=== PATIENT | female | born 1985 | race Caucasian/White ===

== ENCOUNTER 2017-11-04 10:48 | Inpatient (IN) ==
--- NOTE | 2017-11-04 11:20 | ED ---
History of Present Illness Primary Care Physician: No Primary Care Physician History of Present Illness: 33-year-old 002, IUP at 39 weeks per patient report care complicated by questional history of gestational hypertension, heroin use, tobacco use, insufficient care Patient presents complaining of a gush of clear fluid while she was sleeping. She reports that she continues to leak. She reports the patient full contractions at 9 AM which have increased in intensity and frequency since that time. There are no aggravating or alleviating factors except the increase in pain with time and no attempted treatments. The patient reports she was Subutex yesterday. She denies that she used heroin yesterday she denies she is used cocaine in the last 24 hours. She denies any vaginal bleeding. She reports good movement. [employer]: 002, 2 Past medical history: Denies Family history: Denies Past surgical history: Denies - Inpatient Certification I certify that the inpatient services were ordered in accordance with Medicare regulations governing the order. This includes certification that hospital inpatient services are reasonable and necessary and in the case of services not specified as inpatient-only under 42 CFR 419.22(n), that they are appropriately provided as inpatient services in accordance to with the 2-midnight benchmark under 43 CFR 412.3(e) Review of Systems All other systems reviewed negative except as stated in HPI Medications and Allergies Allergies Allergy/AdvReac Type Severity Reaction Status Date / Time Penicillins Allergy Hives Verified 11/04/17 11:23 Exam Narrative: GENERAL: Well-nourished, well-developed patient. SKIN: Warm and dry. HEAD: Normocephalic and atraumatic. EYES: No scleral icterus. No injection or drainage. ENT: No nasal drainage noted. Mucous membranes pink. Airway patent. NECK: Supple, trachea midline. No JVD. CARDIOVASCULAR: Regular rate and rhythm without murmurs, gallops, or rubs. RESPIRATORY: Breath sounds equal bilaterally. No accessory muscle use. BREASTS: Deferred ABDOMEN/GI: Abdomen soft, non-tender, bowel sounds present, no rebound, no guarding Gravid GENITOURINARY: External Genitalia: intact and normal in appearance FHT's: Category: 1 Baseline: 130 Reactive: yes Variability: moderate Decels: indeterminate EXTREMITIES: No cyanosis or edema. BACK: Nontender without obvious deformity. No CVA tenderness. NEUROLOGICAL: Awake and alert. Motor and sensory grossly within normal limits. Five out of 5 muscle strength in all muscle groups. Normal speech. Assessment and Plan - Plan 32 YO at 39/5 weeks with SROM this morning and contractions. Described as clear fluid. Questionable heroin use. FHT reassuring with Cat 1 tracing. Admit to labor and delivery. 1. IUP at 39w per patient report 2. Insufficient care: obtain labs 3. 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 Active labor: will admit for active labor, discussed risks of , risks/ indications of delivery 5. DCF case: patient's mother has custody of both other children, will notify DCF. Discharge Plan - Physicians Team ED Provider: Loli Solares Primary Care Provider: Primary Care Stephy Mitchell
[2017-11-04] MEDS ORDERED: Naloxone Inj 0.4 MG/ML Vial IV.PUSH PRN ×2 (11:22→12:21)
[2017-11-04] MEDS ORDERED: fentaNYL Citrate Inj 100 MCG/2 ML Ampul IV.PUSH PRN ×2 (11:22)
[2017-11-04] MEDS ORDERED: Sodium Chlor 0.9% Inj 500 ML IV.SIG PRN (11:22)
[2017-11-04] MEDS ORDERED: Oxytocin 30 Units/500ml Premix 30 UNITS/500 ML BAG IV.SIG ONE (11:22)
[2017-11-04] MEDS ORDERED: Sod Chloride 0.9% Inj 1,000 ML IV.CONT PRN (11:22)
[2017-11-04] MEDS ORDERED: Citric Acid/Sodium Citrate Liq 30 ML UDC PO SCH (11:30)
[2017-11-04] MEDS ORDERED: Lidocaine PF 1% Inj 5 ML Vial ONE (11:54)
[2017-11-04 12:07] LABS: Cord Arterial Blood HCO3 26.9
--- NOTE | 2017-11-04 12:12 | P.HPOB ---
History of Present Illness Primary Care Physician: No Primary Care Physician History of Present Illness: Patient Name: Jennifer Vazquez Date of : 83 Patient Status: Inpatient Attending Provider: Loli Solares Date: 11/04/17 11:20 Initialization Date: 11/04/17 11:20 History of Present Illness Primary Care Physician: No Primary Care Physician History of Present Illness: 33-year-old 002, IUP at 39 weeks per patient report care complicated by questional history of gestational hypertension, heroin use, tobacco use, insufficient care Patient presents complaining of a gush of clear fluid while she was sleeping. She reports that she continues to leak. She reports the patient full contractions at 9 AM which have increased in intensity and frequency since that time. There are no aggravating or alleviating factors except the increase in pain with time and no attempted treatments. The patient reports she was Subutex yesterday. She denies that she used heroin yesterday she denies she is used cocaine in the last 24 hours. She denies any vaginal bleeding. She reports good movement. 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 This includes certification that hospital inpatient services are reasonable and necessary and in the case of services not specified as inpatient-only under 42 CFR 419.22(n), that they are appropriately provided as inpatient services in accordance to with the 2-midnight benchmark under 43 CFR 412.3(e) Review of Systems All other systems reviewed negative except as stated in HPI Medications and Allergies Allergies Allergy/AdvReac Type Severity Reaction Status Date / Time Penicillins Allergy Hives Verified 11/04/17 11:23 Exam Narrative: GENERAL: Well-nourished, well-developed patient. SKIN: Warm and dry. HEAD: Normocephalic and atraumatic. EYES: No scleral icterus. No injection or drainage. ENT: No nasal drainage noted. Mucous membranes pink. Airway patent. NECK: Supple, trachea midline. No JVD. CARDIOVASCULAR: Regular rate and rhythm without murmurs, gallops, or rubs. RESPIRATORY: Breath sounds equal bilaterally. No accessory muscle use. BREASTS: Deferred ABDOMEN/GI: Abdomen soft, non-tender, bowel sounds present, no rebound, no guarding Gravid GENITOURINARY: External Genitalia: intact and normal in appearance FHT's: Category: 1 Baseline: 130 Reactive: yes Variability: moderate Decels: indeterminate EXTREMITIES: No cyanosis or edema. BACK: Nontender without obvious deformity. No CVA tenderness. NEUROLOGICAL: Awake and alert. Motor and sensory grossly within normal limits. Five out of 5 muscle strength in all muscle groups. Normal speech. Assessment and Plan - Plan 32 YO at 39/5 weeks with SROM this morning and contractions. Described as clear fluid. Questionable heroin use. FHT reassuring with Cat 1 tracing. Admit to labor and delivery. 1. IUP at 39w per patient report 2. Insufficient care: obtain labs 3. 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 Active labor: will admit for active labor, discussed risks of , risks/ indications of delivery 5. DCF case: patient's mother has custody of both other children, will notify DCF. Discharge Plan - Physicians Team ED Provider: Lloi Solares Primary Care Provider: Primary Care Stephy Mitchell - Inpatient Certification I certify that the inpatient services were ordered in accordance with Medicare regulations governing the order. This includes certification that hospital inpatient services are reasonable and necessary and in the case of services not specified as inpatient-only under 42 CFR 419.22(n), that they are appropriately provided as inpatient services in accordance to with the 2-midnight benchmark under 43 CFR 412.3(e) Estimated Total Length of Stay (Days): 2 Plans for Post Hospital Care: Home Medications and Allergies Active Medications: Active Medications Citric Acid/Sodium Citrate (Sodium Citrate/Citric Acid Liq) 30 ml PO [employer] [facility] Stop: 11/08/17 11:29 Fentanyl Citrate (Fentanyl Inj) 100 mcg IV.PUSH Q1H PRN PRN Reason: PAIN SCALE 6 TO 10 Fentanyl Citrate (Fentanyl Inj) 50 mcg IV.PUSH Q1H PRN PRN Reason: Pain Scale 3 - 5 Lactated Ringer's (Lr 1000 Ml Inj) 1,000 mls @ 125 mls/hr IV.CONT .Q8H [facility] Lactated Ringer's (Lr 1000 Ml Inj) 1,000 mls @ 3,000 mls/hr IV.SIG UNSCH PRN PRN Reason: compromise or epidural Sodium Chloride (Ns Inj) 500 mls @ 1,000 mls/hr IV.SIG UNSCH PRN PRN Reason: SEE LABEL COMMENTS Sodium Chloride (Ns Inj) 1,000 mls @ 100 mls/hr IV.CONT .Q10H PRN PRN Reason: SEE LABEL COMMENTS Lidocaine HCl (Xylocaine 1% Inj) 0.1 ml I-DERMAL PRN PRN PRN Reason: For IV start Stop: 11/07/17 11:21 Lidocaine HCl (Xylocaine 1% Inj) 10 ml INFILTRATN PRN PRN PRN Reason: For episiotomy repair Stop: 11/06/17 11:21 Mineral Oil (Muri-Lube Oil) 10 ml TOPICAL PRN PRN PRN Reason: PRN perineal massage Naloxone HCl (Narcan Inj) 0.1 mg IV.PUSH Q2M PRN PRN Reason: for opiate reversal Allergies Allergy/AdvReac Type Severity Reaction Status Date / Time Penicillins Allergy Hives Verified 11/04/17 11:23 Exam Vital signs: Vital Signs 11/04/17 12:07 Pulse Rate 113 H Respiratory Rate 18 Blood Pressure 131/71 Intake & Output 11/03/17 11/04/17 11/04/17 18:59 06:59 18:59 Weight 162 kg Results - Labs Labs: Laboratory Results - last 24 hr 11/04/17 11:50 Puncture Site Cord blood Cord ABG pH 7.220 Cord ABG pCO2 68.2 H Cord ABG pO2 12.5 Cord ABG HCO3 26.9 Cord ABG Base Excess 0 Cord ABG O2 Sat 18.2 Caprini VTE Risk Assessment Caprini VTE Risk Assessment: No/Low Risk (score <= 1) Caprini Risk Assessment Model: Point Value = 1 Point Value = 2 Point Value = 3 Point Value = 5 Age 41-60 Minor surgery BMI > 25 kg/m2 Swollen legs Varicose veins or History of unexplained or recurrent spontaneous Oral contraceptives or hormone replacement Sepsis (< 1 month) Serious lung disease, including pneumonia (< 1 month) Abnormal pulmonary function Acute myocardial infarction Congestive heart failure (< 1 month) History of inflammatory bowel disease Medical patient at bed rest Age 61-74 Arthroscopic surgery Major open surgery (> 45 min) Laparoscopic surgery (> 45 min) Malignancy Confined to bed (> 72 hours) Immobilizing plaster cast Central venous access Age >= 75 History of VTE Family history of VTE Factor V Leiden Prothrombin [id number] Lupus anticoagulant Anticardiolipin antibodies Elevated serum homocysteine Heparin-induced thrombocytopenia Other congenital or acquired thrombophilia Stroke (< 1 month) Elective arthroplasty Hip, pelvis, or leg fracture Acute spinal cord injury (< 1 month) Prophylaxis Regimen: Total Risk Factor Score Risk Level Prophylaxis Regimen 0-1 Low Early ambulation 2 Moderate Order ONE of the following: *Sequential Compression Device (SCD) *Heparin 5000 units SQ BID 3-4 Higher Order ONE of the following medications: *Heparin 5000 units SQ TID *Enoxaparin/Lovenox 40 mg SQ daily (WT < 150 kg, CrCl > 30 mL/min) *Enoxaparin/Lovenox 30 mg SQ daily (WT < 150 kg, CrCl > 10-29 mL/min) *Enoxaparin/Lovenox 30 mg SQ BID (WT < 150 kg, CrCl > 30 mL/min) AND/OR *Sequential Compression Device (SCD) 5 or more Highest Order ONE of the following medications: *Heparin 5000 units SQ TID (Preferred with Epidurals) *Enoxaparin/Lovenox 40 mg SQ daily (WT < 150 kg, CrCl > 30 mL/min) *Enoxaparin/Lovenox 30 mg SQ daily (WT < 150 kg, CrCl > 10-29 mL/min) *Enoxaparin/Lovenox 30 mg SQ BID (WT < 150 kg, CrCl > 30 mL/min) AND *Sequential Compression Device (SCD) Assessment and Plan - Plan 32 YO at 39/5 weeks with SROM this morning and contractions. Described as clear fluid. Questionable heroin use. FHT reassuring with Cat 1 tracing. Admit to labor and delivery. 1. Laboring at 39/5
--- NOTE | 2017-11-04 12:16 | P.PN ---
Subjective Interval history: Delivery note The patient rapidly progressed to complete/complete/+1 station. The patient was difficult to redirect due to pain, however she commenced spontaneous maternal expulsive efforts. The head delivered atraumatically and the anterior shoulder was visualized. A nuchal cord was reduced over the head and the remainder of the infant delivered atraumatically. The umbilical cord was also noted to be wrapped around the arm. The was vigorous immediately after delivery in the nose and mouth were suctioned with the bulb suction. The was placed on the maternal abdomen and the cord doubly clamped and cut after a delay of 1 minute. The vigorous was taken to the warmer. A cord pH and cord blood was obtained for the nursery. The placenta delivered spontaneously and appeared to be intact. A first-degree vaginal laceration was noted on the posterior vaginal wall near the introitus. 2 cc of 1% lidocaine were instilled followed by repair with a [id number] stitch of 2-0 Vicryl. EBL 200 cc. Apgars 8/9. Mother and are both doing well. Physical Exam Vital signs: Vital Signs 11/04/17 12:07 Pulse Rate 113 H Respiratory Rate 18 Blood Pressure 131/71 Intake & Output 11/03/17 11/04/17 11/04/17 18:59 06:59 18:59 Weight 162 kg Results - Labs CBC & Chem 7: 11/04/17 11:35 11/04/17 11:35 Laboratory Results - last 24 hr 11/04/17 11:50 Puncture Site Cord blood Cord ABG pH 7.220 Cord ABG pCO2 68.2 H Cord ABG pO2 12.5 Cord ABG HCO3 26.9 Cord ABG Base Excess 0 Cord ABG O2 Sat 18.2
--- NOTE | 2017-11-04 12:20 | P.OBDELI ---
Weeks Gestation: 39 Patient Started Active Labor: Yes Active Labor Start Date: 11/04/17 Medical Induction of Labor: No Anesthesia: None Episiotomy: none Vaginal Delivery: Normal, Spontaneous Presentation: Occiput anterior Nuchal Cord: x1 Delayed Cord Clamping (45 sec): Yes Shoulder Dystocia: Lulu maneuver done Placenta: Spontaneous delivery, Intact Laceration: Vaginal, 1 deg Estimated blood loss (mL): 200 Infant: Male, Single Delivery Date: 11/04/17 Delivery Time: 11:51 Weight: 3085 kg score (1 min): 8 score (5 min): 9 Additional Information: Male delivered. Dr Solares attending and Dr Wong as primary performer. Figure of 8 suture for superficial 1st degree vaginal laceration. Lidocaine injection given prior to suture with chromic gut. Hemostasis promptly achieved. EBL 250cc.
[2017-11-04] MEDS ORDERED: Benzocaine 20% Top Spray 60 ML Can TOPICAL PRN (12:21)
[2017-11-04] MEDS ORDERED: Bisacodyl 10 MG Supp RECTAL PRN (12:21)
[2017-11-04] MEDS ORDERED: Witch Hazel 50%/Glyderin 12.5% 40 Pad Jar RECTAL PRN (12:21)
[2017-11-04] MEDS ORDERED: Acetaminophen 325 MG Tablet PO PRN (12:21)
[2017-11-04] MEDS ORDERED: Zolpidem Tartrate 5 MG Tablet PO PRN (12:21)
[2017-11-04] MEDS ORDERED: Oxytocin 30 Units/500ml Premix 30 UNITS/500 ML BAG IV.CONT SCH (12:30)
[2017-11-04 12:50] LABS: Alanine Aminotransferase 20 U/L (10-53)
[2017-11-04 12:51] LABS: Albumin 2.5 g/dL (3.4-5.0); Anion Gap 10 meq/L (5-15); Aspartate Aminotransferase 34 U/L (15-37); Blood Urea Nitrogen 8 mg/dL (7-18); Calcium 7.9 mg/dL (8.5-10.1); Carbon Dioxide 21.5 meq/L (21.0-32.0); Chloride 105 meq/L (98-107); Glomerular Filtration Rate Greater Than 89 mL/min (>89); Glucose,Random 98 mg/dL (74-106); Potassium 4.2 meq/L (3.5-5.1); Sodium 136 meq/L (136-145)
[2017-11-04 12:52] LABS: Alkaline Phosphatase 243 U/L (45-117); Total Protein 6.8 g/dL (6.4-8.2)
[2017-11-04 13:13] LABS: Hepatitits B Surface Antigen Nonreactive (Nonreactive)
[2017-11-04 13:32] LABS: Amphetamine Urine With Conf Neg (Neg); Benzodiazepine Urine With Conf Neg (Neg)
[2017-11-04 13:33] LABS: Bilirubin,Urine Negative (Negative); Clarity,Urine Hazy (Clear); Color,Urine Yellow (Yellw/Straw); Glucose,Urine (UA) Negative (Negative); Leukocyte Esterase,Urine Negative (Negative); Mucus,Urine Few /lpf (Occasional); Nitrite,Urine Negative (Negative); Squamous Epithelial Cell,Urine 2 /hpf (0-5)
[2017-11-04 13:43] LABS: Hepatitis A IgM Antibody Nonreactive (Nonreactive)
[2017-11-04 14:12] LABS: Baso % (Auto) 0.1 % (0.0-2.0); Eos # (Auto) 0.1 th/mm3 (0.0-0.4); Eos % (Auto) 0.6 % (0.0-4.0); Hematocrit 33.8 % (35.0-46.0); Hemoglobin 11.3 gm/dL (11.6-15.3); Lymph # (Auto) 1.2 th/mm3 (1.0-4.8); Lymph % (Auto) 7.6 % (9.0-44.0); Mean Corpuscular HGB Conc 33.3 % (32.0-36.0); Mean Corpuscular Hemoglobin 31.4 pg (27.0-34.0); Mean Corpuscular Volume 94.3 fL (80.0-100.0); Mean Platelet Volume 8.8 fL (7.0-11.0); Mono # (Auto) 0.5 th/mm3 (0.0-0.9); Mono % (Auto) 3.1 % (0.0-8.0); Neut # (Auto) 13.8 th/mm3 (1.8-7.7); Neut % (Auto) 88.6 % (16.0-70.0); Platelet Count 148 th/mm3 (150-450); Red Blood Count 3.59 mil/mm3 (4.00-5.30); Red Cell Distribution Width 12.9 % (11.6-17.2); White Blood Count 15.6 th/mm3 (4.0-11.0)
[2017-11-04] MEDS ORDERED: Diphtheria/Tetanus/Pertussis Vaccine Inj 0.5 ML Syringe IM ONE (16:00)
[2017-11-04] MEDS ORDERED: Measles/Mumps/Rubella Vaccine Inj 0.5 ML Vial SQ ONE (16:00)
[2017-11-04] MEDS: Senna/Docusate Sodium 8.6/50 MG Tablet PO SCH (22:47)
[2017-11-05] MEDS: Senna/Docusate Sodium 8.6/50 MG Tablet PO SCH (09:48)
[2017-11-05 10:35] VITALS: RESP 18
--- NOTE | 2017-11-05 10:50 | P.PNOB ---
Subjective Post day: 1 Interval history: day #1 AFVSS overnight. Decreased lochia. Denies dysuria. No breast tenderness. Appetite good. No nausea or vomiting. Positive flatus/bowel movement. Ambulating well. Denies shortness of breath. Reports bilateral leg swelling, tenderness. Reports the swelling and tenderness has been present for greater than 1 week. Otherwise, she is doing well this morning and has no other complaints. Objective Vital Signs/I&O: Vital Signs 11/04/17 12:07 11/04/17 12:16 11/04/17 12:25 Temperature Pulse Rate 113 H 109 H 115 H Respiratory Rate 18 20 Blood Pressure 131/71 123/81 136/85 11/04/17 12:31 11/04/17 12:45 11/04/17 13:15 Temperature Pulse Rate 106 H 98 H 99 H Respiratory Rate 18 Blood Pressure 120/76 122/77 121/75 11/04/17 13:30 11/04/17 13:41 11/04/17 15:45 Temperature 97.5 F L 98.4 F Pulse Rate 74 Respiratory Rate 18 18 Blood Pressure 116/71 11/04/17 20:00 11/05/17 08:00 Temperature 98.3 F 98.0 F Pulse Rate 75 81 Respiratory Rate 20 18 Blood Pressure 114/72 123/69 Intake & Output 11/04/17 11/05/17 11/05/17 18:59 06:59 18:59 Weight 73 kg Other: Weight On Admission 73 kg Result Diagrams: 11/04/17 13:56 11/04/17 11:35 Objective Remarks: GENERAL: Well-nourished, well-developed patient. CARDIOVASCULAR: Regular rate and rhythm without murmurs, gallops, or rubs. RESPIRATORY: Breath sounds equal bilaterally. No accessory muscle use. ABDOMEN/GI: Abdomen soft, non-tender. Fundus: Firm, non-tender at umbilicus. GENITOURINARY: Light to moderate bleeding. EXTREMITIES: No cyanosis. Bilateral swelling, tenderness. Medications and IVs: Active Medications Acetaminophen (Tylenol) 650 mg PO Q4H PRN PRN Reason: PAIN SCALE 1 TO 2 Last Admin: 11/04/17 16:53 Dose: 650 mg Al Hydroxide/Mg Hydroxide (Milk Of Magnesia Liq) 30 ml PO Q12H PRN PRN Reason: Mild Constipation Benzocaine (Americaine 20% [place]) 1 spray TOPICAL Q4H PRN PRN Reason: For Perineum Discomfort Last Admin: 11/04/17 16:53 Dose: 1 spray Bisacodyl (Dulcolax Supp) 10 mg RECTAL DAILY PRN PRN Reason: SEVERE CONSITIPATION Citric Acid/Sodium Citrate (Sodium Citrate/Citric Acid Liq) 30 ml PO [employer]PUT[employer] [facility] Stop: 11/08/17 11:29 Ibuprofen (Motrin) 800 mg PO Q8H PRN PRN Reason: For cramping Last Admin: 11/04/17 13:30 Dose: 800 mg Lactulose (Lactulose Liq) 30 ml PO DAILY PRN PRN Reason: SEVERE CONSITIPATION Lidocaine HCl (Xylocaine 1% Inj) 0.1 ml I-DERMAL PRN PRN PRN Reason: For IV start Stop: 11/07/17 11:21 Mineral Oil (Muri-Lube Oil) 10 ml TOPICAL PRN PRN PRN Reason: PRN perineal massage Naloxone HCl (Narcan Inj) 0.1 mg IV.PUSH Q2M PRN PRN Reason: for opiate reversal Ondansetron HCl (Zofran Odt) 4 mg PO Q6H PRN PRN Reason: NAUSEA OR VOMITING Senna/Docusate Sodium (Sabina-Colace) 1 tab PO BID [facility] Last Admin: 11/05/17 09:48 Dose: Not Given Sennosides (Senokot) 17.2 mg PO Q12H PRN PRN Reason: Moderate Constipation Sodium Chloride (Ns Flush) 2 ml IV.FLUSH BID [facility] Last Admin: 11/05/17 09:49 Dose: Not Given Sodium Chloride (Ns Flush) 2 ml IV.FLUSH UNSCH PRN PRN Reason: FLUSH AFTER USING IV ACCESS Witch Sarahi/Glycerin (Tucks Pads) 1 applicatio RECTAL QID PRN PRN Reason: HEMORRHOIDS Last Admin: 11/04/17 16:53 Dose: 1 applicatio Zolpidem Tartrate (Ambien) 5 mg PO HS PRN PRN Reason: SLEEP Assessment and Plan - Plan 32y/o female who is PPD#1 s/p . B/L leg swelling and tenderness present for greater than 1 week. -Follow-up bilateral leg Doppler -Continue routine care. -Motrin PRN pain. -Encouraged OOB. Advised pelvic rest for 6 wks. -Re: ctrl, she would like Depo-Provera. -D/c in 1-2 more days. wdw OB attending - Attending Attestation The patient was seen and examined by me and I participated in all jc decision making. Continue routine care. SMS
--- NOTE | 2017-11-05 16:07 | US ---
EXAM DATE: 11/05/2017 4:01 PM EDT AGE/SEX: 32 years / Female INDICATIONS: Bilateral leg swelling. CLINICAL DATA: This is the patient's initial encounter. Patient reports that signs and symptoms have been present for 2 weeks and indicates a pain score of 0/10. MEDICAL/SURGICAL HISTORY: . Bilateral leg swelling. None. COMPARISON: No prior exams available for comparison. TECHNIQUE: Venous ultrasound of both lower extremities was performed from the inguinal ligament to t he proximal calf. Real-time, color Doppler and spectral tracing, compression and augmentation techni ques were used. FINDINGS: Right Leg: Normal compression of the deep venous system from the inguinal region to the proximal mumtaz f. No echogenic clot is seen. Normal response of the venous system to augmentation and respiration. Left Leg: Normal compression of the deep venous system from the inguinal region to the proximal calf . No echogenic clot is seen. Normal response of the venous system to augmentation and respiration. Other: None. CONCLUSION: 1. The study is negative for bilateral lower extremity deep venous thrombosis. Electronically signed by: Carlos Gómez MD 11/05/2017 4:05 PM EDT
[2017-11-05 21:20] VITALS: BP 122/79; PULSE 88; TEMP 98.3
== END 2017-11-05 22:10 | disposition home or self-care (01) ==
LOC: HOBED 10:48 → H2E 11:14 → H1EA 11:40
PROVIDERS: ADMIT Obstetrics & Gynecology; ATTEND Obstetrics & Gynecology